=== PATIENT | female | born 1945 | race Caucasian/White ===

== ENCOUNTER 2018-10-18 05:47 | Day surgery (SDC) | payer OTHER ==
[~2018-10-18] VITALS: Ht 160 cm; Wt 93.0 kg
[~2018-10-18 05:47] MED LIST: CLARITIN10 MG; CLOB.05TO; Co Q-1010 MG; DICL25ER; FISH OIL 1,0001 EAC1 PO; Flonase 0.05% N16 GM; MONT10T
[2018-10-18] MEDS ORDERED: MONT10T PO (06:27)
[2018-10-18] MEDS ORDERED: METO25ER PO (06:28)
[2018-10-18] MEDS ORDERED: FISH OIL 1,001000 MG PO (06:28)
--- NOTE | 2018-10-18 07:35 | NUR ---
PT TOLERATED LOOP IMPLANT WELL. NADN. VSS.
== END 2018-10-18 08:30 | disposition home or self-care (01) ==
LOC: MHTC 05:47
DX: R55 Syncope and collapse (principal); I47.1 Supraventricular tachycardia; E78.5 Hyperlipidemia, unspecified; G47.33 Obstructive sleep apnea (adult) (pediatric); I12.9 Hypertensive chronic kidney disease with stage 1 through stage 4 chronic kidney disease, or unspecified chronic kidney disease; E11.22 Type 2 diabetes mellitus with diabetic chronic kidney disease; N18.9 Chronic kidney disease, unspecified; Z79.899 Other long term (current) drug therapy; Z88.0 Allergy status to penicillin; Z88.2 Allergy status to sulfonamides; Z88.8 Allergy status to other drugs, medicaments and biological substances
CPT/HCPCS: 33285; C1764

== ENCOUNTER → 2019-03-16 | Outpatient (CLI) | payer OTHER ==
[~2019-03-16] MED LIST changes: +FISH OIL 1,001000 MG PO; +METO25ER PO; +MONT10T PO
[2019-03-17 13:44] LABS: Stool Occult Bld Immuno 1 Negative (NEGATIVE); Stool Occult Bld Immuno 2 Negative (NEGATIVE)
== END | disposition home or self-care (01) ==
LOC: LAB EV 12:23
PROVIDERS: Internal Medicine Gastroenterology
DX: K57.90 Diverticulosis of intestine, part unspecified, without perforation or abscess without bleeding (principal); Z86.010 Personal history of colon polyps
CPT/HCPCS: 82274

== ENCOUNTER → 2019-09-16 | Outpatient (CLI) | payer OTHER ==
[2019-09-19 15:08] LABS: HPV 16 Negative (Negative); HPV 18 Negative (Negative); HPV OTHER HR TYPES Negative (Negative)
== END | disposition home or self-care (01) ==
LOC: LAB 15:09 → LAB SHORT 15:09
PROVIDERS: Nurse Practitioner Family
DX: Z12.4 Encounter for screening for malignant neoplasm of cervix (principal); N95.0 Postmenopausal bleeding; N93.9 Abnormal uterine and vaginal bleeding, unspecified
CPT/HCPCS: 87624; G0145

== ENCOUNTER 2019-11-11 05:40 | Day surgery (SDC) | payer OTHER ==
[~2019-11-11] VITALS: Ht 157.5 cm; Wt 93.0 kg
[~2019-11-11 05:40] MED LIST changes: +Calcium Magnes1 EACH PO; +NEOBACHC15 TOP; +VITAMIN D-32000 UNIT PO; +Vitamin B-Comp1 EACH PO
--- NOTE | 2019-11-11 11:55 | NUR ---
1000 ASSUMED CARE OF PATIENT. PATIENT RESTING COMFORTABLY, MONITOR IN PLACE AND CALL LIGHT IN REACH. SIDERAIL UP X 1. DRESSING TO THE LEFT SHOULDER CDI. NO PAIN NOTED FROM THE PATIENT
--- NOTE | 2019-11-11 15:20 | NUR ---
1455 PATIENT TAKEN TO THE RADIOLOGY DEPARTMENT AND 2 VIEW XRAY TAKEN. PATIENT BACK TO RECOVERY ROOM IN THE [facility] AND PLACE BACK ON THE MONITOR. VVS. NO PAIN. SLIGHT TENDERNESS TO THE LEFT SHOULDER/CHEST WALL WITH PALPATION. CALL LIGHT IN REACH.
--- NOTE | 2019-11-11 15:32 | NUR ---
1530 DR. SCHWARZ AT THE BEDSIDE FOR PACEMAKER CHECK WITH BODY PRESS OPERATOR. SPOKE WITH PATIENT ABOUT RESULTS OF CHEST XRAY AND ANSWERED ALL QUESTIONS. DRESSING CHANGED AT THE BEDSIDE.
--- NOTE | 2019-11-11 17:31 | NUR ---
1700 VANCOMYCIN INFUSIN TO PIV OVER 45 MINUTES.
--- NOTE | 2019-11-11 17:55 | NUR ---
1755 VANCOMYCIN COMPLETE. PATIENT UP TO THE RESTROOM. UPON RETURN FROM THE RESTROOM NOTED TO HAVE ITICHING ON HER HEAD AND NECK. REDNESS NOTE, WITHOUT WELPS.NOTIFIED DR. SCHWARZ AND HE ORDERED THE VANCO TO BE STOPPED (EXPLAINED THAT THE VANCOMYCIN DOES IS COMPLETE AT THIS TIME). HE ORDERED IV BENADRYL 25 ML, WHICH WAS IMMEDIATELY GIVEN AND CONTINUE TO MONITOR SYMPTOMS.
--- NOTE | 2019-11-11 18:07 | NUR ---
1800 NOTED THE PATIENTS MEDICAL RECORD OF ALLERGIC REACTION.
--- NOTE | 2019-11-11 18:14 | NUR ---
1810 DR. SCHWARZ CALLED BACK AND AFTER REVIEWED WITH PHARMACY, THE REACTION WAS DUE TO THE RATE IT WAS INFUSED IN OVER (45 MINUTES) AND NOT A ALLERGIC REACTION. 1810 SYMPTOMS RESOLVING WITH THE BENADRYL AND PIV REMOVED. CATHETER TIP INTACT AND PRESSURE DRESSING APPLIED. 1815 PATIENT DISCHARGED HOME AND INSTRUCTED TO CALL THE ANSWERING SERVICE IF ANY FURTHER SYMPTOMS.
== END 2019-11-11 18:20 | disposition home or self-care (01) ==
LOC: MHTC 05:40
DX: I49.5 Sick sinus syndrome (principal); I47.1 Supraventricular tachycardia; E78.5 Hyperlipidemia, unspecified; G47.33 Obstructive sleep apnea (adult) (pediatric); E11.22 Type 2 diabetes mellitus with diabetic chronic kidney disease; N18.9 Chronic kidney disease, unspecified; Z79.899 Other long term (current) drug therapy; Z88.0 Allergy status to penicillin; Z88.1 Allergy status to other antibiotic agents; Z88.2 Allergy status to sulfonamides; Z88.6 Allergy status to analgesic agent
CPT/HCPCS: 33208; 71046; 76937; 99152; 99153; C1769; C1785; C1894; C1898; J1200; J1644; J2250; J3010; J3370; J7030; J7040

== ENCOUNTER 2019-11-17 08:52 | Observation (INO) | payer OTHER ==
[~2019-11-17] VITALS: Ht 157.5 cm; Wt 92.5 kg
[~2019-11-17 08:52] MED LIST changes: +B Complex-Foli1 EACH PO; -CLARITIN10 MG; -Calcium Magnes1 EACH PO; +Loratadine10 MG PO; +Oyster Shell C500 MG PO; -Vitamin B-Comp1 EACH PO
[2019-11-17 10:12] LABS: BASOPHILS ABSOLUTE AUTO 0.11 K/mm3 (0.00-0.23); BASOPHILS PERCENT AUTO 1 % (0-2); EOSINOPHILS ABSOLUTE AUTO 0.17 K/mm3 (0.00-0.68); EOSINOPHILS PERCENT AUTO 2 % (0-6); Hematocrit 44.1 % (33.0-51.0); Hemoglobin 13.9 g/dL (11.5-16.0); IMMATURE GRAN ABSOLUTE AUTO 0.03 K/mm3 (0.00-0.10); IMMATURE GRAN PERCENT AUTO 0 % (0-1); LYMPHOCYTES ABSOLUTE AUTO 1.92 K/mm3 (0.84-5.20); LYMPHOCYTES PERCENT AUTO 21 % (21-46); MONOCYTES ABSOLUTE AUTO 0.88 K/mm3 (0.16-1.47); MONOCYTES PERCENT AUTO 10 % (4-13); Mean Corpuscular HGB 28.1 pg (26.0-34.0); Mean Corpuscular HGB Conc 31.5 g/dL (31.5-36.5); Mean Corpuscular Volume 89 fL (80-100); Mean Platelet Volume 8.9 fL (9.1-12.4); NEUTROPHILS ABSOLUTE AUTO 6.17 K/mm3 (1.96-9.15); NEUTROPHILS PERCENT AUTO 67 % (41-73); Platelet Count 242 K/mm3 (150-400); RDW Coefficient Variation 15.1 % (11.7-14.2); RDW Standard Deviation 49.8 fL (35.1-46.3); Red Blood Cell Count 4.94 M/mm3 (3.80-5.20); White Blood Cell Count 9.28 K/mm3 (4.00-11.30)
[2019-11-17 10:48] LABS: Alanine Aminotransfer (ALT/SGP 31 U/L (12-78); Albumin, Blood 3.5 g/dL (3.4-5.0); Albumin/Globulin Ratio 0.8 (0.8-1.8); Alk Phos 89 U/L (50-136); Anion Gap 3 mmol/L (6-16); Aspartate Aminotrans (AST/SGOT 29 U/L (12-37); Bilirubin, Total 0.8 mg/dL (0.1-1.0); Blood Urea Nitrogen 19 mg/dL (8-24); Bun/Creatinine Ratio 19.3 (12.0-20.0); CO2, Blood 29 mmol/L (21-32); Calcium, Blood 9.5 mg/dL (8.5-10.1); Chloride, Blood 107 mmol/L (98-108); Creatinine, Blood 0.99 mg/dL (0.40-1.00); Globulin, Blood 4.5 g/dL (2.2-4.0); Glomerular Filtration Rate 59 (60-); Glucose, Blood 101 mg/dL (70-99); Sodium, Blood 139 mmol/L (136-145); Troponin I <0.015 ng/mL (0.000-0.040)
--- NOTE | 2019-11-17 13:16 | NUR ---
RECEIEVED REPORT FROM [facility] STUDENT NURSE AT 1315. PATIENT TO TRANSFER TO ROOM 361.
--- NOTE | 2019-11-17 13:50 | NUR ---
patient never arrived to unit. just informed that patient is being transfered to [facility].
== END 2019-11-17 16:00 | disposition short-term general hospital (02) ==
LOC: ER 08:52 → MEDS 08:53
PROVIDERS: Emergency Medicine; ADMIT Family Medicine
DX: T82.120A Displacement of cardiac electrode, initial encounter (principal); Y83.1 Surgical operation with implant of artificial internal device as the cause of abnormal reaction of the patient, or of later complication, without mention of misadventure at the time of the procedure; Z88.0 Allergy status to penicillin; Z88.2 Allergy status to sulfonamides; Z88.1 Allergy status to other antibiotic agents; Z88.6 Allergy status to analgesic agent; E78.5 Hyperlipidemia, unspecified; F41.9 Anxiety disorder, unspecified; F32.9 Major depressive disorder, single episode, unspecified
CPT/HCPCS: 36415; 71046; 71250; 80053; 84484; 85025; 93005; 93010; 99285-25

== ENCOUNTER → 2020-10-19 | Outpatient (CLI) | payer OTHER ==
[2020-10-20 07:25] LABS: Candida species (DNA Probe) Negative (NEGATIVE); G. vaginalis (DNA Probe) Negative (NEGATIVE); T. vaginalis (DNA Probe) Negative (NEGATIVE)
== END | disposition home or self-care (01) ==
LOC: LAB SHORT 12:00 → LAB 12:00
PROVIDERS: Family Medicine
DX: N76.0 Acute vaginitis (principal)
CPT/HCPCS: 87480; 87510; 87660

== ENCOUNTER → 2021-03-22 | Outpatient (CLI) | payer OTHER ==
[2021-03-23 14:13] LABS: Stool Occult Bld Immuno 1 Negative (NEGATIVE)
== END | disposition home or self-care (01) ==
LOC: LAB SHORT 15:15
PROVIDERS: Internal Medicine
DX: Z12.11 Encounter for screening for malignant neoplasm of colon (principal)
CPT/HCPCS: 82274

== ENCOUNTER 2021-11-05 07:15 | Day surgery (SDC) | payer OTHER ==
[~2021-11-05] VITALS: Ht 157.5 cm; Wt 94.1 kg
[2021-11-05] MEDS ORDERED: Diclofenac Sodi50 MG (07:39)
[2021-11-05] MEDS ORDERED: ACET500 (07:40)
[2021-11-05] MEDS ORDERED: TRAM50 (07:41)
--- NOTE | 2021-11-05 08:54 | NUR ---
11/05/21 0854 Rigo Moon LIDOCAINE 2% 1:100,000 MIXED 1:1 W/ BUPIVACAINE 0.75% PER ORDER FOR INJECTION AT [facility] PRIOR TO SURGERY START, BY DR WELCH. 10 MLS INJECTED IN EACH EYE FOR A TOTAL OF 20 MLS.
--- NOTE | 2021-11-05 09:09 | NUR ---
11/05/21 0909 ELIAZAR PELAEZ INCISION TO BILAT EYE LID NO DRAINAGE, SMALL AMOUNT OF SWELLING, INCISIONS APPROXIMATED
== END 2021-11-05 09:28 | disposition home or self-care (01) ==
LOC: ORSCSDS 07:15
PROVIDERS: Ophthalmology
PROC: 080PXZZ Alteration of Left Upper Eyelid, External Approach (ICD-10-PCS; principal; 2021-11-05 08:30)
PROC: 080NXZZ Alteration of Right Upper Eyelid, External Approach (ICD-10-PCS; principal; 2021-11-05 08:30)
DX: H02.831 Dermatochalasis of right upper eyelid (principal); H02.834 Dermatochalasis of left upper eyelid; E66.9 Obesity, unspecified; G47.33 Obstructive sleep apnea (adult) (pediatric); Z95.0 Presence of cardiac pacemaker; Z68.37 Body mass index [BMI] 37.0-37.9, adult; Z79.899 Other long term (current) drug therapy
CPT/HCPCS: A9270; J2704; J7040

== ENCOUNTER → 2022-12-12 | Outpatient (CLI) | payer OTHER ==
[~2022-12-12] MED LIST changes: +ACET500; +Diclofenac Sodi50 MG; +TRAM50
== END ==
LOC: LAB 13:48 → LAB SHORT 13:48 → PLD 13:48
DX: N95.0 Postmenopausal bleeding (principal)
CPT/HCPCS: 88305

== ENCOUNTER → 2022-12-12 | Outpatient (CLI) | payer OTHER ==
[2022-12-16 11:10] LABS: HPV 16 Negative (Negative); HPV 18 Negative (Negative); HPV OTHER HR TYPES Negative (Negative)
== END | disposition home or self-care (01) ==
LOC: LAB SHORT 13:12 → LAB 13:12
PROVIDERS: Obstetrics & Gynecology
DX: Z01.419 Encounter for gynecological examination (general) (routine) without abnormal findings (principal)
CPT/HCPCS: 87624; G0145

== ENCOUNTER 2024-02-01 06:16 | Day surgery (SDC) | payer OTHER ==
[~2024-02-01] VITALS: Ht 157.5 cm; Wt 94.8 kg
[~2024-02-01 06:16] MED LIST changes: +[UNRECOGNIZED DRUG - OTHER]
[2024-02-01] MEDS ORDERED: CefTRIAXone Sodium 2,000 MG in NS 100 ML IV SCH (06:50)
[2024-02-01] MEDS ORDERED: EPINEPhrine HCl 1 MG / ML 30ML Vial ONE (06:53)
[2024-02-01] MEDS ORDERED: Ropivacaine 0.5% HCL/PF 5 MG/ML 30ML Vial ONE (06:53)
[2024-02-01] MEDS ORDERED: FentaNYL Citrate 50 MCG/ML 2 ML Injection ONE ×2 (06:55→08:27)
[2024-02-01] MEDS ORDERED: propofoL 20 ML IV ONE (06:55)
[2024-02-01] MEDS ORDERED: Dexamethasone Sod Phos 10 MG/ML 1ML VIAL ONE (06:56)
[2024-02-01] MEDS ORDERED: Ondansetron HCl 2 MG / ML 2ML Vial ONE (06:56)
[2024-02-01] MEDS ORDERED: Sugammadex Sodium 200 MG/2ML SDV (100 MG/ML) ONE (06:56)
[2024-02-01] MEDS ORDERED: Rocuronium Bromide 10 MG/ML 5ML Injection IV ONE ×2 (06:56→08:07)
[2024-02-01] MEDS ORDERED: Midazolam HCl 1MG / ML 2ML Vial ONE (06:56)
[2024-02-01] MEDS ORDERED: EPINEPhrine HCl 1 MG/ML 1ML Amp ONE (06:56)
[2024-02-01] MEDS ORDERED: Bupivacaine 0.5% HCl 5 MG/ML 30MLVIAL ONE (06:57)
[2024-02-01] MEDS ORDERED: Lactated Ringer's 1,000 ML IV ONE ×3 (07:00→09:20)
[2024-02-01] MEDS ORDERED: TOCO1000 (07:03)
[2024-02-01] MEDS ORDERED: Acetaminophen 500 MG Tab ONE (07:13)
[2024-02-01] MEDS ORDERED: Tranexamic Acid 100 ML IV ONE ×2 (07:14→10:13)
[2024-02-01] MEDS ORDERED: OxyCODONE HCL 10 MG TABCR ONE (07:14)
[2024-02-01] MEDS ORDERED: ePHEDrine Sulfate 50 MG/ML 1ML Injection ONE (07:55)
--- NOTE | 2024-02-01 08:19 | NUR ---
02/01/24 0819 Patricia Jeffrey TXCynthia FIRST DOSE STARTED @ [address] STEPHENS.
--- NOTE | 2024-02-01 09:58 | NUR ---
02/01/24 0958 NASRA RENAE TRIAL FROM 10L O2 TO 5L O2, PT DECREASED, INCREASED O2 TO 7L VIA FACE TENT.
--- NOTE | 2024-02-01 10:10 | NUR ---
02/01/24 1010 NASRA RENAE IN ([employer]) TO DO XRAY.
[2024-02-01 10:11] VITALS: BP 159/74
== END 2024-02-01 12:03 | disposition home or self-care (01) ==
LOC: ORSCSDS 06:16
PROVIDERS: Orthopaedic Surgery
PROC: 0RHJ04Z Insertion of Internal Fixation Device into Right Shoulder Joint, Open Approach (ICD-10-PCS; principal; 2024-02-01 07:30)
PROC: 0RRJ00Z Replacement of Right Shoulder Joint with Reverse Ball and Socket Synthetic Substitute, Open Approach (ICD-10-PCS; principal; 2024-02-01 07:30)
PROC: 0LS30ZZ Reposition Right Upper Arm Tendon, Open Approach (ICD-10-PCS; principal; 2024-02-01 07:30)
DX: M75.121 Complete rotator cuff tear or rupture of right shoulder, not specified as traumatic (principal); G47.33 Obstructive sleep apnea (adult) (pediatric); E78.5 Hyperlipidemia, unspecified; K21.9 Gastro-esophageal reflux disease without esophagitis; E66.9 Obesity, unspecified; Z68.37 Body mass index [BMI] 37.0-37.9, adult; F41.8 Other specified anxiety disorders; Z79.899 Other long term (current) drug therapy
CPT/HCPCS: 73030; 82947; A9270; C1713; C1776; J0171; J0696; J1100; J2250; J2405; J2704; J2795; J3010; J7120

== ENCOUNTER 2025-02-01 12:31 | Inpatient (IN) | payer OTHER ==
[~2025-02-01] VITALS: Ht 157.5 cm; Wt 93.7 kg
[~2025-02-01 12:31] MED LIST changes: -ALLERCLEAR10 MG PO; -Estradiol VAG; -FISH OIL 1,0001 EA10 PO; -Flonase 0.05% Nasal; -GLUCHON PO
[2025-02-01] MEDS ORDERED: NS 1,000 ML IV SCH ×2 (15:05→21:00)
[2025-02-01] MEDS ORDERED: Estradiol VAG (15:06)
[2025-02-01] MEDS ORDERED: Flonase 0.05% Nasal (15:07)
[2025-02-01] MEDS ORDERED: ALLERCLEAR10 MG PO (15:08)
[2025-02-01] MEDS ORDERED: MONT10T PO (15:09)
[2025-02-01] MEDS ORDERED: NS 1,000 ML IV ONE (15:55)
[2025-02-01 16:59] LABS: Anti-Xa UFH, PHA Monitoring <0.10 IU/mL; Prothrombin Time Results 10.9 Sec (9.7-11.5)
[2025-02-01] MEDS ORDERED: Heparin Sodium,Porcine/0.5 NS 500 ML IV SCH (17:05)
[2025-02-01] MEDS ORDERED: Heparin Sodium 5000 Units/ML 1ML MDV IV ONE (17:05)
[2025-02-01 19:09] VITALS: BP 136/74
[2025-02-01] MEDS ORDERED: FISH OIL 1,0001 EA10 PO (19:23)
[2025-02-01 20:23] LABS: CHOL/HDL RATIO 4.8; Cholesterol 194 mg/dL (50-200); HDL Cholesterol 40 mg/dL (>39); LDL/HDL RATIO 3.0; Low Density Lipoprotein Chol 120 mg/dL (0-110); Triglycerides 171 mg/dL (30-160); Very Low Density Lipoprot Chol 34 mg/dL (6-32)
[2025-02-02] VITALS (13 sets, daily range): BP systolic 110–135; BP diastolic 53–73
[2025-02-02 00:16] LABS: BASOPHILS ABSOLUTE AUTO 0.05 K/mm3 (0.00-0.23); BASOPHILS PERCENT AUTO 0 % (0-2); EOSINOPHILS ABSOLUTE AUTO 0.03 K/mm3 (0.00-0.68); EOSINOPHILS PERCENT AUTO 0 % (0-6); Hematocrit 39.9 % (33.0-51.0); Hemoglobin 12.5 g/dL (11.5-16.0); IMMATURE GRAN ABSOLUTE AUTO 0.07 K/mm3 (0.00-0.10); IMMATURE GRAN PERCENT AUTO 1 % (0-1); LYMPHOCYTES ABSOLUTE AUTO 4.11 K/mm3 (0.84-5.20); LYMPHOCYTES PERCENT AUTO 28 % (21-46); MONOCYTES ABSOLUTE AUTO 1.02 K/mm3 (0.16-1.47); MONOCYTES PERCENT AUTO 7 % (4-13); Mean Corpuscular HGB Conc 31.3 g/dL (31.5-36.5); Mean Corpuscular Volume 89 fL (80-100); NEUTROPHILS ABSOLUTE AUTO 9.35 K/mm3 (1.96-9.15); NEUTROPHILS PERCENT AUTO 64 % (41-73); NRBC ABSOLUTE 0.00 K/mm3 (0.00-0.02); NRBC Auto 0.0 /100 WBC (0.0-0.2); Platelet Count 270 K/mm3 (150-400); RDW Coefficient Variation 15.4 % (11.7-14.2); RDW Standard Deviation 50.1 fL (35.1-46.3)
[2025-02-02 00:52] LABS: Alanine Aminotransfer (ALT/SGP 27.0 U/L (12-78); Albumin, Blood 3.3 g/dL (3.4-5.0); Albumin/Globulin Ratio 1.0 (0.8-1.8); Anion Gap 10.0 mmol/L (3-11); Aspartate Aminotrans (AST/SGOT 26.0 U/L (12-37); Bilirubin, Total 0.5 mg/dL (0.1-1.0); Blood Urea Nitrogen 20.0 mg/dL (8-24); CO2, Blood 27.0 mmol/L (21-32); Calcium, Blood 8.6 mg/dL (8.5-10.1); Chloride, Blood 106.0 mmol/L (98-108); Creatinine, Blood 0.99 mg/dL (0.40-1.00); Globulin, Blood 3.3 g/dL (2.2-4.0); Glucose, Blood 103.0 mg/dL (70-99); Potassium, Blood 4.0 mmol/L (3.5-5.5); Sodium, Blood 139.0 mmol/L (136-145); Total Protein, Blood 6.6 g/dL (6.4-8.2)
--- NOTE | 2025-02-02 05:43 | NUR ---
SHIFT SUMMARY PT TRANSFERRED FROM ED TO PCU 19 AT SHIFT CHANGE. PREVIOUS RN EVELIN RECEIVED REPORT VIA PHONE FROM ADOPTION MANAGER. BEDSIDE SHIFT REPORT DONE AFTER ARRIVAL. PT REPORTING MILD INTERMITTENT BURNING CHEST PAIN. WORSE WITH EXERTION AND OCCASIONAL SOB WITH EXERTION. ON RA WITH SPO2 >92%. BP STABLE. ATRIAL PACED AT 60. AFEBRILE. INDEPENDENT WITH ADL S. NORMAL GAIT. HEP GTT INFUSING PER EMAR. HOME CPAP SET UP AT BEDSIDE BY RT. PT CONTINUED TO REPORT MILD INTERMITTENT BURNING SENSATION IN CHEST. REPORTS SHE HAS BEEN ABLE TO SLEEP DESPITE THE CHEST PAIN. REPOSITIONING SELF. INDEPENDENT TO BATHROOM. BED IN LOWEST POSITION AND CALL LIGHT WITHIN REACH. THIS RN WILL REPORT TO ONCOMING DAYSHIFT RN.
[2025-02-02] MEDS ORDERED: GLUCHON PO (08:47)
[2025-02-02] MEDS ORDERED: Fluticasone 0.05% Nasal Spray SCH ×2 (09:00→21:00)
[2025-02-02] MEDS ORDERED: Dose Adjust by Pharmacy XX STA (09:12)
[2025-02-02] MEDS ORDERED: NS 250 ML IV ONE (09:48)
[2025-02-02] MEDS ORDERED: NS 1,000 ML IV ONE ×2 (09:48→10:04)
[2025-02-02] MEDS ORDERED: NiCARdipine HCL 1,000 MCG/5 ML SYR ONE (09:48)
[2025-02-02] MEDS ORDERED: Nitroglycerin 2 MG/20 ML BTL ONE (09:48)
[2025-02-02] MEDS ORDERED: Heparin Sodium 1000 Units/ML 10ML MDV ONE ×2 (09:48→10:32)
[2025-02-02] MEDS ORDERED: FentaNYL Citrate 50 MCG/ML 2 ML Injection ONE (10:32)
[2025-02-02] MEDS ORDERED: Midazolam HCl 1MG / ML 2ML Vial ONE ×2 (10:32→11:04)
--- NOTE | 2025-02-02 11:59 | NUR ---
Upon receiving a referral for spiritual care, I visited the patient. She tells me about her concerns of what is happening medically, about her Chist[place] bekah and her up coming ECHO. I provided prayer for peaceand clear results that will help manage her clinical issues. THe patient voiced appreciation and showed signs of increased peace.
--- NOTE | 2025-02-02 16:15 | NUR ---
TR BAND RECOVERY 11mLs IN TR BAND AT 1130 IN [facility]. SITE WNL, NO BRUISING, BLEEDING HEMATOMA, DENIES TENDERNESS. SpO2> 92% RA ON R INDEX FINGER. TR BAND AND ARM BOARD IN PLACE. 1230: 2mLs OUT OF TR BAND. SITE WNL, NO BRUISING, BLEEDING HEMATOMA, DENIES TENDERNESS. SpO2> 92% RA ON R INDEX FINGER. TR BAND AND ARM BOARD IN PLACE. 1245: 2mLs OUT OF TR BAND. SITE WNL, NO BRUISING, BLEEDING HEMATOMA, DENIES TENDERNESS. SpO2> 92% RA ON R INDEX FINGER. TR BAND AND ARM BOARD IN PLACE. 1305: 2mLs OUT OF TR BAND. SITE WNL, NO BRUISING, BLEEDING HEMATOMA, DENIES TENDERNESS. SpO2> 92% RA ON R INDEX FINGER. TR BAND AND ARM BOARD IN PLACE. 1325: 2mLs OUT OF TR BAND. SITE WNL, NO BRUISING, BLEEDING HEMATOMA, DENIES TENDERNESS. SpO2> 92% RA ON R INDEX FINGER. TR BAND AND ARM BOARD IN PLACE. 1335: 2mLs OUT OF TR BAND; NOW EMPTY. SITE WNL, NO BRUISING, BLEEDING HEMATOMA, DENIES TENDERNESS. SpO2> 92% RA ON R INDEX FINGER. TR BAND AND ARM BOARD IN PLACE. 1435: TR BAND REMOVED WNL. SITE CLEANED WITH CHLORHEXIDINE, SKIN PREP APPLIED, TEGADERM APPLIED, ARM BOARD IN PLACE.
--- NOTE | 2025-02-02 18:09 | NUR ---
SHIFT SUMMARY SEE PREVIOUS NOTES. NO ACUTE CHANGES, A&Ox4, CALLS AND COMMUNICATES NEEDS APPROPRIATELY. BP STABLE, PACED 60's, DENIES CP/PRESSURE. SpO2> 92% RA, DENIES SOB. IND IN ROOM. R RADIAL SITE REMAINS WNL, NO BRUISING, BLEEDING, HEMATOMA, NON-TENDER, ARM BOARD IN PLACE. TRANSPORT ARRIVED TO TAKE PT AT APPROXIMATELY 1730. PT SENT ON HEPARIN gtt AT 15units/kg/hr. AT BEDSIDE WITH ALL PT BELONGINGS. PT LEFT AT APPROXIMATELY 1745. WILL REPORT TO RECEIVING RN.
== END 2025-02-02 18:45 | disposition short-term general hospital (02) | DRG 282 ==
LOC: ER 12:31 → PCU 15:01
PROVIDERS: ADMIT Student in an Organized Health Care Education/Training Program
PROC: 5A09357 Assistance with Respiratory Ventilation, Less than 24 Consecutive Hours, Continuous Positive Airway Pressure (ICD-10-PCS; 2025-02-01)
PROC: B2111ZZ Fluoroscopy of Multiple Coronary Arteries using Low Osmolar Contrast (ICD-10-PCS; principal; 2025-02-02)
PROC: 4A023N7 Measurement of Cardiac Sampling and Pressure, Left Heart, Percutaneous Approach (ICD-10-PCS; 2025-02-02)
DX: I21.4 Non-ST elevation (NSTEMI) myocardial infarction (principal); I25.10 Atherosclerotic heart disease of native coronary artery without angina pectoris; I25.5 Ischemic cardiomyopathy; I49.5 Sick sinus syndrome; N18.31 Chronic kidney disease, stage 3a; M51.16 Intervertebral disc disorders with radiculopathy, lumbar region; R79.89 Other specified abnormal findings of blood chemistry; R73.03 Prediabetes; J30.9 Allergic rhinitis, unspecified; G47.33 Obstructive sleep apnea (adult) (pediatric); Z88.8 Allergy status to other drugs, medicaments and biological substances; Z95.0 Presence of cardiac pacemaker; Z88.2 Allergy status to sulfonamides; Z88.0 Allergy status to penicillin; Z88.1 Allergy status to other antibiotic agents; Z88.6 Allergy status to analgesic agent; Z79.899 Other long term (current) drug therapy; Z68.38 Body mass index [BMI] 38.0-38.9, adult; R07.89 Other chest pain; J98.09 Other diseases of bronchus, not elsewhere classified
CPT/HCPCS: 36415; 71046; 76937; 80048; 80053; 80061; 83036; 83735; 83880; 84443; 84484; 85025; 85520; 85610; 85730; 93005; 93010; 93306; 93458; 93880; 94762; 99152; 99153; 99285-25; A9270; C1769; C1894; J1644; J2250; J3010; J7030; J7050; Q9967

== ENCOUNTER → 2025-02-01 | Outpatient (CLI) | payer OTHER ==
[~2025-02-01] MED LIST changes: +ALLERCLEAR10 MG PO; +Estradiol VAG; +FISH OIL 1,0001 EA10 PO; +Flonase 0.05% Nasal; +GLUCHON PO; +TOCO1000
[2025-02-01 11:44] LABS: BASOPHILS ABSOLUTE AUTO 0.04 K/mm3 (0.00-0.23); BASOPHILS PERCENT AUTO 0 % (0-2); EOSINOPHILS ABSOLUTE AUTO 0.01 K/mm3 (0.00-0.68); EOSINOPHILS PERCENT AUTO 0 % (0-6); Hematocrit 41.9 % (33.0-51.0); Hemoglobin 12.9 g/dL (11.5-16.0); IMMATURE GRAN ABSOLUTE AUTO 0.09 K/mm3 (0.00-0.10); IMMATURE GRAN PERCENT AUTO 1 % (0-1); LYMPHOCYTES ABSOLUTE AUTO 1.42 K/mm3 (0.84-5.20); LYMPHOCYTES PERCENT AUTO 14 % (21-46); MONOCYTES ABSOLUTE AUTO 0.36 K/mm3 (0.16-1.47); MONOCYTES PERCENT AUTO 4 % (4-13); Mean Corpuscular HGB Conc 30.8 g/dL (31.5-36.5); Mean Corpuscular Volume 90 fL (80-100); NEUTROPHILS ABSOLUTE AUTO 8.09 K/mm3 (1.96-9.15); NEUTROPHILS PERCENT AUTO 81 % (41-73); NRBC ABSOLUTE 0.00 K/mm3 (0.00-0.02); NRBC Auto 0.0 /100 WBC (0.0-0.2); Platelet Count 293 K/mm3 (150-400); RDW Coefficient Variation 15.7 % (11.7-14.2); RDW Standard Deviation 51.1 fL (35.1-46.3)
[2025-02-01 11:50] LABS: Anion Gap 10.0 mmol/L (3-11); Blood Urea Nitrogen 22.0 mg/dL (8-24); CO2, Blood 28.0 mmol/L (21-32); Calcium, Blood 9.3 mg/dL (8.5-10.1); Chloride, Blood 104.0 mmol/L (98-108); Creatinine, Blood 1.04 mg/dL (0.40-1.00); Glucose, Blood 136.0 mg/dL (70-99); Potassium, Blood 4.4 mmol/L (3.5-5.5); Sodium, Blood 138.0 mmol/L (136-145)
== END ==
LOC: LAB 11:39 → LAB SHORT 11:39
PROVIDERS: Physician Assistant Medical
DX: R07.89 Other chest pain (principal)
CPT/HCPCS: 80048; 83880; 84484; 85025